=== PATIENT | female | born 1980 | race Caucasian/White ===

== ENCOUNTER 2019-04-23 08:48 | Emergency (ER) | payer SELFPAY ==
--- OUTSIDE RECORDS SUMMARY | 2019-04-23 08:50 | XMS REPORT ---
:1980 [facility] Address [address] [place] [address] [address] [place] [address] Care Team Providers Name Role Phone Unavailable Unavailable Unavailable Problems This patient has no known problems. Allergies, Adverse Reactions, Alerts This patient has no known allergies or adverse reactions. Medications This patient has no known medications.
[2019-04-23] MEDS ORDERED: METHYLPREDNISOLONE 125 MG INJ ONE (09:23)
[2019-04-23] MEDS ORDERED: LEVALBUTEROL 1.25 MG/3 ML NEB ONE (09:24)
--- NOTE | 2019-04-23 11:36 | RAD REPORT ---
EXAM DESCRIPTION: RAD - Chest Pa And Lat (2 Views) - 04/23/2019 10:42 am CLINICAL HISTORY: Cough;Dyspnea COMPARISON: No comparisons TECHNIQUE: Frontal and lateral views of the chest were obtained. FINDINGS: The lungs are clear of focal mass or consolidation. There is a mild prominence of the inte rstitial pattern with the baseline unknown. And mild interstitial edema or infiltrate cannot be exclu ded. Heart size is normal and central vasculature is within normal limits. No pleural effusion or pneumothorax seen. No acute bony finding noted. No aortic abnormality. IMPRESSION: No focal consolidations seen to suspect a bacterial pneumonia. Interstitial pattern is prominent with the baseline for the patient unknown. Mild interstitial edema or infiltrate cannot be excluded.
--- NOTE | 2019-04-23 11:54 | ER ---
Nurse's Notes [facility] Name: Natanael Young Age: 38 yrs Sex: Female : 1980 Arrival Date: 04/23/2019 Time: 08:52 Bed 20 Private MD: Diagnosis: Wheezing;Dyspnea, unspecified Presentation: 04/23 09:10 Presenting complaint: Patient states: has been dealing with asthma for a month, woke up iw this morning and was SOB, tried her inhaler and still feels like she has chest congestion. Transition of care: patient was not received from another setting of care. Onset of symptoms was April 23, 2019. Risk Assessment: Do you want to hurt yourself or someone else? Patient reports no desire to harm self or others. Initial Sepsis Screen: Does the patient meet any 2 criteria? No. Patient's initial sepsis screen is negative. Does the patient have a suspected source of infection? No. Patient's initial sepsis screen is negative. Care prior to arrival: None. 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 - Coronavirus screen:: The patient has NOT traveled to [place], [place], or [place] in the past 14 days. Proceed with normal triage process as indicated. - Family history:: not pertinent. - Social history:: Smoking status: Patient reports the use of cigarette tobacco products, smokes one-half pack cigarettes per day. - Hospitalizations: : No recent hospitalization is reported. - Ebola Screening: : Patient negative for fever greater than or equal to 101.5 degrees Fahrenheit, and additional compatible Ebola Virus Disease symptoms Patient denies exposure to infectious person Patient denies travel to an Ebola-affected area in the 21 days before illness onset No symptoms or risks identified at this time. Screenin:05 Abuse screen: Denies threats or abuse. Nutritional screening: No deficits noted. Tuberculosis screening: No symptoms or risk factors identified. Fall Risk None identified. Assessment: 09:20 General: Appears uncomfortable, Behavior is calm, cooperative, appropriate for age. ah Pain: Denies pain. Neuro: Level of Consciousness is awake, alert, Oriented to person, place, time, situation, Multicultural Internship are equal bilaterally Moves all extremities. Full function Gait is steady, Speech is normal. Cardiovascular: Heart tones S1 S2 present Capillary refill < 3 seconds Patient's skin is warm and dry. Pulses are palpable in right radial artery, right dorsalis pedis artery, left radial artery and left dorsalis pedis artery Edema is 1+ to left foot and right foot. Respiratory: Reports shortness of breath at rest cough that is non-productive, Airway is patent Respiratory effort is even, unlabored, Respiratory pattern is regular, Breath sounds with wheezes bilaterally. Onset: The symptoms/episode began/occurred this morning, the patient has moderate shortness of breath Parent/caregiver reports the patient having Pt states that she has been using her albuterol inhaler at home with no relief. GI: Abdomen is non-distended, Bowel sounds present X 4 quads. Abd is soft and non tender. : No signs and/or symptoms were reported regarding the genitourinary system. Derm: Skin is intact, is healthy with good turgor, Skin is dry, Skin is pink, warm \T\ dry. Musculoskeletal: Circulation, motion, and sensation intact. Capillary refill < 3 seconds, Range of motion: intact in all extremities. 11:04 Reassessment: Patient appears in no apparent distress at this time. Patient and/or family updated on plan of care and expected duration. Pain level reassessed. Patient is alert, oriented x 3, equal unlabored respirations, skin warm/dry/pink. Patient states feeling better. Patient states symptoms have improved. 12:13 Reassessment: Patient appears in no apparent distress at this time. Patient and/or family updated on plan of care and expected duration. Pain level reassessed. Patient is alert, oriented x 3, equal unlabored respirations, skin warm/dry/pink. Patient states feeling better. Patient states symptoms have improved. Vital Signs: 09:21 BP 133 / 87; Pulse 93; Resp 20 S; Temp 98.1; Pulse Ox 98% on R/A; Weight 85.73 kg; iw Height 5 ft. 3 in. (160.02 cm); 11:01 BP 116 / 81; Pulse 120; Resp 18; Pulse Ox 98% on R/A; ah 11:57 BP 115 / 69; Pulse 119; Resp 18; Temp 99.2(TE); Pulse Ox 97% on R/A; 5 09:21 Body Mass Index 33.48 (85.73 kg, 160.02 cm) ED Course: 08:52 Patient arrived in ED. mr 09:09 Maycol Pitt MD is Attending Physician. rn 09:17 Lucy Flores RN is Primary Nurse. 09:20 Triage completed. iw 09:21 Arm band placed on. iw 09:45 Inserted saline lock: 22 gauge in right antecubital area, using aseptic technique. sv Flushed left antecubital with 2 ml normal saline. 09:53 Flu Sent. ah 10:05 Patient has correct armband on for positive identification. Placed in gown. Bed in low ah position. 10:39 Patient moved to radiology via wheelchair. ah 10:43 Patient taken to an exam room, via wheelchair, Patient moved back from radiology. ah 11:23 XRAY Chest Pa And Lat (2 Views) Sent. sv 11:53 Chu López MD is Referral Physician. rn 12:13 No provider procedures requiring assistance completed. IV discontinued, intact, sv bleeding controlled, No redness/swelling at site. Pressure dressing applied. Administered Medications: 09:00 Drug: Xopenex (3) 1.25 mg Route: Inhalation; ah 09:50 Drug: SOLU-Medrol 125 mg Route: IVP; Site: left antecubital; 11:04 Follow up: Response: No adverse reaction Outcome: 11:54 Discharge ordered by . rn 12:13 Discharged to home ambulatory. sv 12:13 Condition: stable 12:13 Condition: improved 12:13 Discharge instructions given to patient, Instructed on discharge instructions, follow up and referral plans. medication usage, Demonstrated understanding of instructions, follow-up care, medications, Prescriptions given X 3. 12:13 Patient left the ED. sv Signatures: Anna Natarajan RN ARACELI Norma MuñozVelma RN RN Maycol Pitt MD MD rn Martinez, [facility] Lucy Flores RN [facility]
--- NOTE | 2019-04-23 11:55 | EDPHYS ---
Physician Documentation [facility] Name: Natanael Young Age: 38 yrs Sex: Female : 1980 Arrival Date: 04/23/2019 Time: 08:52 Bed 20 Private MD: ED Physician Maycol Pitt HPI: 04/23 09:15 This 38 yrs old Female presents to ER via Unassigned with complaints of rn Breathing Difficulty. 09:15 The patient has shortness of breath at rest, with light activity. Onset: The rn symptoms/episode began/occurred yesterday. Duration: The symptoms are continuous. The patient's shortness of breath is aggravated by coughing, light activity. Associated signs and symptoms: Pertinent positives: non-productive cough, Pertinent negatives: fever, hemoptysis. Severity of symptoms: At their worst the symptoms were mild in the emergency department the symptoms are unchanged. The patient has experienced a previous episode. Reports sob and wheezing, began yesterday, no fever, + smoker, reports increased wheezing over last month, no previous hx of wheezing or asthma. . 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 - Coronavirus screen:: The patient has NOT traveled to [place], [place], or [place] in the past 14 days. Proceed with normal triage process as indicated. - Family history:: not pertinent. - Social history:: Smoking status: Patient reports the use of cigarette tobacco products, smokes one-half pack cigarettes per day. - Hospitalizations: : No recent hospitalization is reported. - Ebola Screening: : Patient negative for fever greater than or equal to 101.5 degrees Fahrenheit, and additional compatible Ebola Virus Disease symptoms Patient denies exposure to infectious person Patient denies travel to an Ebola-affected area in the 21 days before illness onset No symptoms or risks identified at this time. ROS: 09:15 Constitutional: Negative for fever, chills, and weight loss, Eyes: Negative for injury, rn pain, redness, and discharge, Neck: Negative for injury, pain, and swelling, Cardiovascular: Negative for chest pain, palpitations, and edema, Respiratory: Negative for pleuritic chest pain Abdomen/GI: Negative for abdominal pain, nausea, vomiting, diarrhea, and constipation, MS/Extremity: Negative for injury and deformity, Skin: Negative for injury, rash, and discoloration, Neuro: Negative for headache, weakness, numbness, tingling, and seizure. Exam: 09:15 Constitutional: This is a well developed, well nourished patient who is awake, alert, rn and in no acute distress. Head/Face: Normocephalic, atraumatic. ENT: MMM, no stridor Neck: Trachea midline, no thyromegaly or masses palpated, and no cervical lymphadenopathy. Supple, full range of motion without nuchal rigidity, or vertebral point tenderness. No Meningismus. Cardiovascular: Regular rate and rhythm. No pulse deficits. Respiratory: + bilateral wheezing and mild tachypnea, no retractions, speaking full sentences Skin: Warm, dry Neuro: Awake and alert, GCS 15 Vital Signs: 09:21 BP 133 / 87; Pulse 93; Resp 20 S; Temp 98.1; Pulse Ox 98% on R/A; Weight 85.73 kg; iw Height 5 ft. 3 in. (160.02 cm); 11:01 BP 116 / 81; Pulse 120; Resp 18; Pulse Ox 98% on R/A; ah 11:57 BP 115 / 69; Pulse 119; Resp 18; Temp 99.2(TE); Pulse Ox 97% on R/A; mh5 09:21 Body Mass Index 33.48 (85.73 kg, 160.02 cm) iw MDM: 09:10 Patient medically screened. rn 11:53 Differential diagnosis: Bronchitis Chronic Obstructive Pulmonary Disease pneumonia, rn Pneumothorax reactive airway disease. Data reviewed: vital signs, nurses notes, lab test result(s), radiologic studies, plain films. Counseling: I had a detailed discussion with the patient and/or guardian regarding: the historical points, exam findings, and any diagnostic results supporting the discharge/admit diagnosis, lab results, radiology results, the need for outpatient follow up, to return to the emergency department if symptoms worsen or persist or if there are any questions or concerns that arise at home, smoking cessation. Special discussion: I discussed with the patient/guardian in detail that at this point there is no indication for admission to the hospital. It is understood, however, that if the symptoms persist or worsen the patient needs to return immediately for re-evaluation. 04/23 09:15 Order name: Flu rn 04/23 10:29 Order name: Influenza Screen (A ; Complete Time: 10:40 EDIN 04/23 09:15 Order name: XRAY Chest Pa And Lat (2 Views) rn 04/23 09:15 Order name: IV Start; Complete Time: 09:54 rn Administered Medications: 09:00 Drug: Xopenex (3) 1.25 mg Route: Inhalation; 09:50 Drug: SOLU-Medrol 125 mg Route: IVP; Site: left antecubital; 11:04 Follow up: Response: No adverse reaction Disposition: 04/23/19 11:54 Discharged to Home. Impression: Wheezing, Dyspnea, unspecified. - Condition is Stable. - Discharge Instructions: Shortness of Breath, Steps to Quit Smoking. - Prescriptions for Prednisone 20 mg Oral Tablet - take 3 tablet by ORAL route once daily for 5 days; 15 tablet. Zithromax Z- Kamari 250 mg Oral Tablet - take 1 tablet by ORAL route as directed for 5 days Day 1 - take two (2) tablets one time. Day 2, 3, 4 , 5 take one (1) tablet once daily.; 6 tablet. Albuterol Sulfate 90 mcg/actuation - inhale 1-2 puff by INHALATION route every 4-6 hours; 1 Inhaler. - Medication Reconciliation Form, Thank You Letter, Antibiotic Education, Prescription Opioid Use form. - Follow up: Chu López MD; When: As needed; Reason: Recheck today's complaints, Re-evaluation by your physician. - Problem is new. - Symptoms have improved. Signatures: Dispatcher [employer] [facility] Anna Natarajan RN RN sv Williams, Irene, RN RN iw Nieto, Roman, MD MD rn Harris, Amy, RN RN Corrections: (The following items were deleted from the chart) 12:13 11:54 04/23/2019 11:54 Discharged to Home. Impression: Wheezing; Dyspnea, unspecified. sv Condition is Stable. Forms are Medication Reconciliation Form, Thank You Letter, Antibiotic Education, Prescription Opioid Use. Follow up: Chu López; When: As needed; Reason: Recheck today's complaints, Re-evaluation by your physician. Problem is new. Symptoms have improved. rn
[2019-04-23 12:26] VITALS: BP 115/69; TEMP 99.2; O2SAT 97
== END 2019-04-23 12:13 | disposition home or self-care (01) ==
LOC: ER 08:48
DX: R06.2 Wheezing (principal); R06.00 Dyspnea, unspecified; E03.9 Hypothyroidism, unspecified; F17.210 Nicotine dependence, cigarettes, uncomplicated
CPT/HCPCS: 71046; 87804; 96374; 99284; J2930